=== PATIENT | female | born 1950 | race Caucasian/White ===

== ENCOUNTER → 2017-06-23 | Outpatient (REF) | payer MEDICARE, OTHER ==
[2017-06-23 10:50] LABS: PLATELET COUNT, AUTOMATED 336 K/uL (150-450)
== END ==
PROVIDERS: ATTEND Physician Assistant Medical
DX: R07.9 Chest pain, unspecified (principal)
CPT/HCPCS: 82040; 82247; 82310; 82374; 82435; 82565; 82947; 83880; 84075; 84132; 84155; 84295; 84450; 84460; 84484; 84520; 85025; 85379

== ENCOUNTER → 2017-06-23 | Outpatient (CLI) | payer MEDICARE, OTHER ==
[~2017-06-23] MED LIST: IOPAMIDOL 76% 75 ML INFUS BTL 75 ML ONE; NS 0.9% 20 ML SDV 100 ML ONE
--- NOTE | 2017-06-23 14:05 | RADIOLOGY IMAGING REPORT ---
FACILITY: [facility] PATIENT NAME: Maryanne Baker : 1950 MR: [id number] V: [id number] EXAM DATE: ORDERING PHYSICIAN: HALLE SPICER TECHNOLOGIST: Location: [facility] Patient: Maryanne Baker : 1950 Visit/Account:[id number] Date of Sevice: 06/23/2017 CT ANGIOGRAM OF THE CHEST WITH INTRAVENOUS CONTRAST, PE PROTOCOL DATE OF EXAM: 06/23/2017 13:30 COMPARISON: Chest radiograph of the same day. INDICATION: Hypoxia. Shortness of breath.. TECHNIQUE: Contrast enhanced chest CT performed during the injection of 75 ml of Isovue-370. Three-d imensional (MIP) reconstructions were performed. FINDINGS: There is no pulmonary arterial filling defect. The central pulmonary arteries are mildly enlarged, a nonspecific finding. Thyroid: Incompletely imaged but unremarkable. Thoracic inlet: The thoracic inlet is partially obscured by streak artifact from the right shoulder prosthesis. Heart and great vessels: Heart size is normal. Prominent calcification at the level of the mitral va lve. Mediastinum and consuelo: No mediastinal or hilar adenopathy. Lungs and pleura: No effusion, consolidation, or pneumothorax. Mild dependent atelectasis. Subtle mo saic attenuation may reflect incomplete inspiration but is nonspecific. Breast and axilla: Not diagnostically imaged. Bones and soft tissues: No acute osseous abnormality. Multilevel degenerative findings. Upper abdomen: Unremarkable. IMPRESSION: Negative for pulmonary gel embolus. Findings of no acute abnormality telephoned directly to the ordering provider by the radiology ISC. One of the following dose optimization techniques was utilized in the performance of this exam: Autom ated exposure control; adjustment of the mA and/or kV according to the patient's size; or use of an i terative reconstruction technique. Specific details can be referenced in the facility's radiology C T exam operational policy. Report Dictated By: Daniel Angulo MD at 06/23/2017 1:49 PM Report E-Signed By: Daniel Angulo MD at 06/23/2017 2:00 PM WSN:[id number]
== END ==
LOC: CT 12:49
PROVIDERS: ATTEND Physician Assistant Medical
DX: J98.11 Atelectasis (principal)
CPT/HCPCS: 71275; J7050; Q9967